=== PATIENT | female | born 1955 | race Hispanic/Latino ===

== ENCOUNTER 2018-06-03 07:53 | Day surgery (SDC) | payer BC ==
[2018-06-03] MEDS ORDERED: Propofol 10 mg/ml Inj (20 ML) ONE ×5 (09:38→11:21)
[2018-06-03] MEDS ORDERED: ePHEDrine 50 mg/ml Inj ONE (10:26)
[2018-06-03] MEDS ORDERED: Lidocaine 1% Inj (20ml) ONE (10:37)
[2018-06-03] MEDS ORDERED: Sodium Chloride 0.9% 1,000 ML IV SCH (12:00)
[2018-06-03 12:35] VITALS: BP 111/63; PULSE 74; RESP 16; TEMP 97.7; O2SAT 96
--- NOTE | 2018-06-03 13:48 | RAD ---
Date of service: 06/03/2018 HISTORY: post procedure COMPARISON: No prior. FINDINGS: BOWEL: An endoscope identified placed presumably through the rectum and terminating at the right upper quadrant abdomen. No prominent free intra peritoneal gas identified. Follow-up abdomen obstructive series can provided more sensitive evaluation of free intra peritoneal gas is clinically suspected. Gas seen distending the proximal large bowel segments as well as several small bowel loops which is felt to be procedure related. Phlebolith like calcifications are suspected in the pelvis soft tissues but not in the abdomen. BONES: Normal. OTHER FINDINGS: None. IMPRESSION: Lower endoscopy related findings including endoscope in the majority of the colon terminating at the right upper quadrant abdomen. No gross free intra peritoneal gas appreciable.
== END 2018-06-03 13:01 | disposition home or self-care (01) ==
LOC: ENDO 07:53
PROVIDERS: ATTEND Internal Medicine Gastroenterology
DX: D12.3 Benign neoplasm of transverse colon (principal); K57.30 Diverticulosis of large intestine without perforation or abscess without bleeding; K64.8 Other hemorrhoids; I10 Essential (primary) hypertension
CPT/HCPCS: 45381; 45385; 74018; 88305; J2704; J3010; J7030; J7040

== ENCOUNTER 2018-06-14 06:26 | Inpatient (IN) | payer BC ==
[2018-06-07 15:12] VITALS: BMI 21.2
[2018-06-14 07:17] LABS: BASO # 0.06 K/mm3 (0.0-2.0); BASO % 0.6 % (0.0-3.0); EOS # 0.2 (0.0-0.7); EOS % 2.1 % (1.5-5.0); GRAN # 6.61 (1.4-6.5); GRAN % 69.6 % (50.0-68.0); HEMOGLOBIN 14.2 g/dL (12.0-16.0); LYMPH # 1.8 (1.2-3.4); LYMPH % 18.8 % (22.0-35.0); MEAN CELL VOLUME 100.2 fl (80.0-105.0); MEAN CORPUSCULAR HEMOGLOBIN 34.3 pg (25.0-35.0); MEAN CORPUSCULAR HGB CONC 34.2 g/dl (31.0-37.0); MEAN PLATELET VOLUME 8.6 fl (7.0-11.0); MONO # 0.9 (0.1-0.6); MONO % 8.9 % (1.0-6.0); RBC 4.14 10^6/uL (3.5-6.1); RED CELL DISTRIBUTION WIDTH 12.9 % (11.5-14.5); WHITE BLOOD COUNT 9.5 10^3/ul (4.5-11.0)
[2018-06-14 07:33] LABS: BLOOD UREA NITROGEN 6 mg/dL (7-21); CALCIUM 9.9 mg/dL (8.4-10.5); GFR NON-AFRICAN AMERICAN > 60
[2018-06-14 07:34] LABS: INR 0.99; PARTIAL THROMBOPLASTIN TIME 32.9 Seconds (25.1-36.5); PROTHROMBIN TIME 11.4 SECONDS (9.4-12.5)
[2018-06-14] MEDS ORDERED: cefTRIAXone (Rocephin) 1 gm Inj ONE ×2 (07:48→08:29)
[2018-06-14] MEDS ORDERED: Absorbable Gelatin Sponge Size 100 ONE (07:48)
[2018-06-14] MEDS ORDERED: metroNIDAZOLE IV 500 mg/100 ml 500 MG/100 ML BAG ONE (07:48)
[2018-06-14] MEDS ORDERED: Propofol 10 mg/ml Inj (20 ML) ONE (07:56)
[2018-06-14] MEDS ORDERED: Midazolam 2 MG/2 ML VIAL ONE (07:56)
[2018-06-14] MEDS ORDERED: Lidocaine 1% Inj (20ml) ONE (07:57)
[2018-06-14] MEDS ORDERED: Rocuronium 10 mg/ml (5 ml) ONE ×3 (07:58→10:51)
[2018-06-14] MEDS ORDERED: ePHEDrine 50 mg/ml Inj ONE (08:15)
[2018-06-14] MEDS: Bupivacaine 0.5% 50 ML IJ ONE ×2 (09:35→09:36)
--- NOTE | 2018-06-14 09:47 | RAD ---
Date of service: 06/14/2018 HISTORY: PRE OP SURGERY COMPARISON: No prior. FINDINGS: BOWEL: Normal. No obstruction. No free air. BONES: Normal. OTHER FINDINGS: None. IMPRESSION: No active disease.
[2018-06-14] MEDS ORDERED: Sevoflurane - Inhalation Anesthetic Liq (250 ml) ONE (11:15)
[2018-06-14] MEDS ORDERED: Neostigmine Methylsulfate 3mg/3ml Syringe IV ONE (11:54)
[2018-06-14] MEDS ORDERED: Glycopyrrolate 0.2 mg/ml (2ml vial) ONE (12:29)
[2018-06-14] MEDS ORDERED: HYDROmorphone 0.5 mg/0.5 ml ISec IVP PRN (12:54)
--- NOTE | 2018-06-14 12:56 | PCM.SURG1 ---
Surgeon's Initial Post Op Note - Surgeon's Notes Surgeon: Dr. Guan Care Associate: Dr. Chapman PGY3, [facility] Type of Anesthesia: General Endo Pre-Operative Diagnosis: multiple colonic and rectal polyps Operative Findings: see operative report Post-Operative Diagnosis: see operative report Operation Performed: laparoscopic hand assisted right extended hemicolectomy. Excision of transanal rectal polyp. mobilization of splenic flexure. mesenteric cyst removal. ileocolic anastomosis Specimen/Specimens Removed: right colon. rectal polyp. mesenteric cyst Estimated Blood Loss: EBL {In ML}: 20 Blood Products Given: N/A Drains Used: Kamran Post-Op Condition: Good Date of Surgery/Procedure: 06/14/18 Time of Surgery/Procedure: 08:00
[2018-06-14] MEDS ORDERED: Lactated Ringer's 1,000 ML IV SCH (13:00)
[2018-06-14] MEDS ORDERED: cefOXitin Sodium 1 GM in Sodium Chloride 0.9% 100 ML IV SCH (13:15)
[2018-06-14] MEDS ORDERED: HYDROmorphone 0.5 mg/0.5 ml ISec ONE (13:54)
[2018-06-14] MEDS ORDERED: HYDROmorphone 0.5 mg/0.5 ml ISec IVP ONE ×4 (13:55→14:42)
[2018-06-14] MEDS ORDERED: metroNIDAZOLE IV 500 mg/100 ml 500 MG/100 ML BAG IVPB SCH (14:00)
[2018-06-14] MEDS ORDERED: HYDROmorphone 1 mg/ml ISec ONE ×3 (14:11→14:43)
[2018-06-14] MEDS: Lactated Ringer's 1,000 ML IV SCH (16:02)
[2018-06-14] MEDS: metroNIDAZOLE IV 500 mg/100 ml 500 MG/100 ML BAG IVPB SCH (17:09)
[2018-06-14] MEDS ORDERED: Sodium Chloride 0.9% 500 ML IV STA (17:50)
[2018-06-14] MEDS: HYDROmorphone 0.2 mg/ml (30ml) 30 ML IV PRN (18:07)
[2018-06-14] MEDS: cefOXitin Sodium 1 GM in Sodium Chloride 0.9% 100 ML IV SCH (19:39)
[2018-06-14 20:20] LABS: MEAN CELL VOLUME 100.6 fl (80.0-105.0); MEAN CORPUSCULAR HEMOGLOBIN 34.4 pg (25.0-35.0); MEAN CORPUSCULAR HGB CONC 34.2 g/dl (31.0-37.0); MEAN PLATELET VOLUME 8.7 fl (7.0-11.0); RBC 3.31 10^6/uL (3.5-6.1); RED CELL DISTRIBUTION WIDTH 12.8 % (11.5-14.5); WHITE BLOOD COUNT 14.4 10^3/ul (4.5-11.0)
[2018-06-14 20:21] LABS: HEMOGLOBIN 11.4 g/dL (12.0-16.0)
[2018-06-14 20:33] LABS: BLOOD UREA NITROGEN 6 mg/dL (7-21); CALCIUM 8.1 mg/dL (8.4-10.5); GFR NON-AFRICAN AMERICAN > 60
[2018-06-15] MEDS: cefOXitin Sodium 1 GM in Sodium Chloride 0.9% 100 ML IV SCH (00:59)
[2018-06-15] MEDS: metroNIDAZOLE IV 500 mg/100 ml 500 MG/100 ML BAG IVPB SCH (01:19)
[2018-06-15] MEDS: Lactated Ringer's 1,000 ML IV SCH (03:52)
--- NOTE | 2018-06-15 07:22 | OP ---
PROCEDURE DATE: 06/14/2018 PREOPERATIVE DIAGNOSIS: Multiple sessile polyps in the right colon, transverse colon, and rectum. POSTOPERATIVE DIAGNOSIS: Multiple sessile polyps in the right colon, transverse colon, and rectum. PROCEDURES PERFORMED: 1. Laparoscopic hand-assisted extended right hemicolectomy. 2. Transanal excision of the rectal polyps. 3. Splenic flexure mobilization. SURGEON: Paul Guan MD COMMISSION ASSOCIATE: Dr. Chapman. ANESTHESIOLOGIST: Dr. Gray. ANESTHESIA: General endotracheal anesthesia. ESTIMATED BLOOD LOSS: Minimal. SPECIMEN: 1. Right and transverse colon. 2. Rectal polyps. INDICATIONS: The patient is a 63-year-old female with history of ulcerated lesion in the cecum as well as adjacent sessile polyp. Patient also was found to have a proximal transverse colon polyp and what was thought to be a mid to distal transverse colon sessile polyp. These were not amenable to endoscopic mucosal resection, and therefore a decision was made to proceed with surgical incision. Patient also was noted to have a rectal polyp just past the dentate line, which was also not amenable to endoscopic resection. Patient was scheduled to proceed with the excision of all these lesions. DESCRIPTION OF PROCEDURE: Patient was brought to the operating room, placed on the operating table in supine position. The patient was connected to EKG, blood pressure and pulse oximetry monitors. The patient then underwent general endotracheal anesthesia and was prepped and draped in the usual sterile fashion in the lithotomy position. A Gilliam catheter was placed. First, a rigid sigmoidoscopy was done up to 25 cm. There was a pedunculated polyp noted at 12 o'clock position about 20 cm from the anus. There was another smaller polyp and adjacent polyp to it, at about 15 cm, located on 6 o'clock position. The distal rectal polyp just above the dentate line was noted in 1 o'clock position. At this point, the polyp as well as the adjacent mucosa were grabbed with Nazario clamp and lifted up. A 2-0 chromic stitch was placed at the base of that mucosa and ligated there. The mucosa adjacent to the polyps was then excised using electrocautery and the specimen was sent for pathology. The mucosal defect was now sutured together using the 2-0 chromic stitch in a running locking fashion. Once the mucosal defect was completely closed, the wound was irrigated and a sterile dressing was applied to the rectal area. Now the patient was re-draped and our attention was turned to the abdominal cavity. First, a small incision was made inferior to the umbilicus and Veress needle was inserted into the abdominal cavity after the wall of the abdomen was elevated with two towel clamps. Once pneumoperitoneum was obtained, a 12-mm trocar was inserted through that incision just below the umbilicus. Careful evaluation of abdominal cavities revealed the presence of normal-looking liver and spleen. The visible portion of the stomach also appeared to be normal. The ascending colon appeared to be quite redundant as well as the descending and sigmoid colon. The close inspection of the transverse colon revealed the presence of Fany ink markings at the hepatic flexure and another set of markings at about 10 cm distal to it in the mid transverse colon. At this point, I proceeded with placing two 5-mm trocars lateral to the rectus muscle on the left side, one in left upper quadrant and one in the left lower quadrant. Using bowel grasper and Harmonic scalpel, we proceeded with carefully elevating the ileocecal area and stretching it out, and this way exposing the ileocolic artery. The base of this artery was carefully identified and scoring of the peritoneum took place. Once the peritoneum around the artery was carefully cleared with adjacent fat and the vein was from the artery, we then proceeded with clipping the artery distally and proximally, and transected using Harmonic scalpel. The vein was also divided in the similar fashion. Now the mesentery of the ascending colon was carefully elevated from the underlying path and retroperitoneum. Once this was mobilized all the way up to the right pericolic gutter, I then proceeded to mobilizing the area of the proximal ascending colon, again all the way up to the lateral pericolic gutter. The duodenum was now exposed and the mesentery of the transverse colon and the proximal portion of it overlying the duodenum was also elevated and from the underlying tissue as well as the duodenum. Now my attention was turned to the transverse colon, attachments of the omentum, which was carefully incised above the colon and entry to the lesser sac was accomplished. The transverse colon was now released with the omentum transected above it, and the hepatocolic ligament was also released using Harmonic scalpel. The colon was now mobilized downwards and the transverse colic artery was exposed and noted. The lateral attachment of the colon and the paracolic gutter were taken down, and the colon was freed up on the right side. Those attachment were mobilized all the way up to the proximal portion of the terminal ileum. Once this was accomplished and the bowel was freely moving, I then proceed with further dissecting the area of the transverse colic artery and the right branch of that artery was carefully exposed and transected using Harmonic scalpel. Once this was accomplished, we then proceeded with mobilization of the splenic flexure in order to bring the remaining transverse colon towards the small bowel for anastomosis. Once that was accomplished, again by mobilization of the lateral paracolic gutter of the descending colon and detaching the splenocolic ligament using Harmonic scalpel . Once this portion of the colon was mobilized, I then again evaluated the area, noted that there was excellent hemostasis and proceed with making small incision for extraction of the specimen in the midline of the abdominal cavity. In order to accomplish that, the incision for the infraumbilical trocar was expanded above the umbilicus for about 6 to 7 cm. Using a Vicente retractor, carefully the abdominal cavity was evaluated through this incision. It was copiously irrigated. All the irrigant fluid was suctioned out. There was excellent hemostasis noted. Prior to opening the abdominal cavity, the area of detachment, the area of the splenocolic ligament, it was carefully evaluated and some Surgicel gauze was placed in that area to control bleeding. This was evaluated prior to the opening and there was good hemostasis noted there. Now the right colon, cecum, with the appendix and proximal area were brought out through the incision. The transverse colon was further mobilized directly with suture ligating some of the mesentery of that colon towards the left branch of the transverse colic artery. Once this was sufficiently mobilized, we then proceed with creating redundant [id number]-[id number] anastomosis using the CHINYERE stapler, by first transecting the transverse colon about 10 cm distal to the mid transverse colic region marked with Fany ink, and then transecting the terminal area at about 10 cm proximal to the ileocolic junction. The anastomosis created using CHINYERE and TA staplers. The crotch of the anastomosis was reinforced with a 3-0 silk stitch. A Kamran drain was inserted in the right lower quadrant and extended from the liver down to the pelvis. The stitch was used to secure the drain in place. Again, the abdominal cavity was carefully evaluated under direct vision and there was no bleeding noted anywhere. There was excellent hemostasis. I then proceed with closure of the abdominal wound using #1 PDS in a running fashion. Once the fascia was closed, the wound was copiously irrigated and closed in layers using 3-0 Vicryl for the deep dermal layers and 4-0 Monocryl for skin. A sterile Dermabond dressing was applied to the wound. All the trocar wounds are closed using 4-0 Monocryl and Dermabond dressing was applied to them. A sterile dressing was applied on the drain exit site. The drain was connected to the suction bulb. The patient was then awakened and extubated and transferred to recovery room for further observation. Paul Guan MD
[2018-06-15] MEDS: Enoxaparin 40 mg Syringe SC SCH ×2 (08:29→17:23)
[2018-06-15] MEDS: HYDROmorphone 0.2 mg/ml (30ml) 30 ML IV PRN (09:17)
--- NOTE | 2018-06-15 13:09 | CP.PCM.PN ---
Subjective - Date & Time of Evaluation Date of Evaluation: 06/15/18 Time of Evaluation: 07:00 - Subjective Subjective: Patient seen and examined this morning. No acute events over night. 1180cc/24hr from UOP. 75cc serosanguinous output from adamaris drain. Tolerated ice chips. No complaints. Objective - Vital Signs/Intake and Output Vital Signs (last 24 hours): Temp Pulse Resp BP Pulse Ox 97.6 F 63 20 95/59 L 94 L 06/15/18 09:43 06/15/18 09:43 06/15/18 09:43 06/15/18 09:43 06/15/18 06:00 Intake and Output: 06/15/18 06/15/18 06:59 18:59 Intake Total 940 30 Output Total 1235 Balance -295 30 - Medications Medications: Current Medications Enoxaparin Sodium (Lovenox) 40 mg SC DAILY [facility]; Protocol Last Admin: 06/15/18 08:29 Dose: 40 mg Lactated Ringer's (Lactated Ringer's) 1,000 mls @ 75 mls/hr IV .[id number] [facility] Last Admin: 06/15/18 03:52 Dose: Not Given Ondansetron HCl (Zofran Inj) 4 mg IVP Q6H PRN PRN Reason: Nausea/Vomiting Oxycodone/Acetaminophen (Percocet 5/325 Mg Tab) 1 tab PO Q4H PRN PRN Reason: Pain, moderate (4-7) Stop: 06/18/18 10:59 - Labs Labs: 06/14/18 19:50 06/14/18 19:50 PT 11.4 SECONDS (9.4-12.5) 06/14/18 07:00 INR 0.99 06/14/18 07:00 APTT 32.9 Seconds (25.1-36.5) 06/14/18 07:00 - Constitutional Appears: No Acute Distress - Head Exam Head Exam: NORMOCEPHALIC - Eye Exam Eye Exam: EOMI, Normal appearance - ENT Exam ENT Exam: Mucous Membranes Moist - Respiratory Exam Respiratory Exam: NORMAL BREATHING PATTERN - Cardiovascular Exam Cardiovascular Exam: +S1, +S2 - GI/Abdominal Exam GI & Abdominal Exam: Soft, Tenderness. absent: Distended, Firm, Guarding, Rigid Additional comments: incisional site tender, mild - Neurological Exam Neurological Exam: Alert, Awake, Oriented x3 - Psychiatric Exam Psychiatric exam: Normal Mood - Skin Skin Exam: Dry, Intact, Warm Assessment and Plan - Assessment and Plan (Free Text) Assessment: 63F s/p laparoscopic hand assisted right hemicolectomy and transanal rectal polypectomy POD1 Plan: -Begin clear liquid diet -D/C meade -Begint DVT ppx -Encourage incentive spirometer use -OOB to chair -Encourage ambulation -Monitor adamaris drain output -D/C MACHINE UMBRELLA TIPPER -PO analgesics -D/w Dr. Roge Ledezma PGY3
[2018-06-15] MEDS: Oxycodone/Acetaminophen 5/325 mg Tab PO PRN ×3 (14:07→22:18)
[2018-06-15 19:49] LABS: HEMOGLOBIN 10.8 g/dL (12.0-16.0); MEAN CELL VOLUME 100.3 fl (80.0-105.0); MEAN CORPUSCULAR HEMOGLOBIN 34.4 pg (25.0-35.0); MEAN CORPUSCULAR HGB CONC 34.3 g/dl (31.0-37.0); MEAN PLATELET VOLUME 8.9 fl (7.0-11.0); RBC 3.14 10^6/uL (3.5-6.1); RED CELL DISTRIBUTION WIDTH 13.2 % (11.5-14.5); WHITE BLOOD COUNT 11.2 10^3/ul (4.5-11.0)
[2018-06-15 20:00] LABS: BLOOD UREA NITROGEN 5 mg/dL (7-21); CALCIUM 8.3 mg/dL (8.4-10.5); GFR NON-AFRICAN AMERICAN > 60
[2018-06-16] MEDS: Oxycodone/Acetaminophen 5/325 mg Tab PO PRN ×5 (01:48→21:11)
[2018-06-16] MEDS: Lactated Ringer's 1,000 ML IV SCH (06:42)
[2018-06-16 07:57] LABS: BASO # 0.02 K/mm3 (0.0-2.0); BASO % 0.2 % (0.0-3.0); EOS # 0.1 (0.0-0.7); EOS % 0.9 % (1.5-5.0); GRAN # 6.05 (1.4-6.5); GRAN % 69.5 % (50.0-68.0); HEMOGLOBIN 10.3 g/dL (12.0-16.0); LYMPH # 1.4 (1.2-3.4); LYMPH % 16.5 % (22.0-35.0); MEAN CELL VOLUME 99.3 fl (80.0-105.0); MEAN CORPUSCULAR HEMOGLOBIN 34.2 pg (25.0-35.0); MEAN CORPUSCULAR HGB CONC 34.4 g/dl (31.0-37.0); MEAN PLATELET VOLUME 8.4 fl (7.0-11.0); MONO # 1.1 (0.1-0.6); MONO % 12.9 % (1.0-6.0); RBC 3.01 10^6/uL (3.5-6.1); RED CELL DISTRIBUTION WIDTH 13.1 % (11.5-14.5); WHITE BLOOD COUNT 8.7 10^3/ul (4.5-11.0)
[2018-06-16 08:17] LABS: BLOOD UREA NITROGEN 3 mg/dL (7-21); CALCIUM 8.2 mg/dL (8.4-10.5); GFR NON-AFRICAN AMERICAN > 60
[2018-06-16] MEDS: Enoxaparin 40 mg Syringe SC SCH (13:27)
[2018-06-16] MEDS ORDERED: Potassium Chloride 20 mEq ER Tab PO STA (19:18)
[2018-06-17] MEDS: Oxycodone/Acetaminophen 5/325 mg Tab PO PRN ×3 (02:56→15:01)
[2018-06-17] MEDS: Lactated Ringer's 1,000 ML IV SCH (05:24)
[2018-06-17 07:57] LABS: BLOOD UREA NITROGEN 3 mg/dL (7-21); CALCIUM 8.8 mg/dL (8.4-10.5); GFR NON-AFRICAN AMERICAN > 60
[2018-06-17] MEDS: Enoxaparin 40 mg Syringe SC SCH (09:11)
[2018-06-17 15:43] VITALS: BP 145/77; PULSE 69; RESP 16; TEMP 98; O2SAT 93
== END 2018-06-17 18:12 | disposition home or self-care (01) | DRG 331 ==
LOC: SDAINP 06:26 → EDSTATUS 09:00 → 5RSO 15:36
PROVIDERS: ADMIT General Practice; ATTEND General Practice
PROC: 0DJD8ZZ Inspection of Lower Intestinal Tract, Via Natural or Artificial Opening Endoscopic (ICD-10-PCS; 2018-06-14)
PROC: 0DTF4ZZ Resection of Right Large Intestine, Percutaneous Endoscopic Approach (ICD-10-PCS; principal; 2018-06-14 07:30)
PROC: 0DBP7ZZ Excision of Rectum, Via Natural or Artificial Opening (ICD-10-PCS; 2018-06-14 07:30)
DX: D12.0 Benign neoplasm of cecum (principal); K62.1 Rectal polyp; K66.8 Other specified disorders of peritoneum; I10 Essential (primary) hypertension; E03.9 Hypothyroidism, unspecified

== ENCOUNTER 2018-10-18 10:47 | Day surgery (SDC) | payer BC ==
[2018-10-14 10:50] VITALS: BMI 20.1
[2018-10-18] MEDS ORDERED: Propofol 10 mg/ml Inj (20 ML) ONE ×2 (14:05→15:23)
[2018-10-18] MEDS ORDERED: Midazolam 2 MG/2 ML VIAL ONE (14:06)
[2018-10-18] MEDS ORDERED: Sodium Chloride 0.9% 1,000 ML IV SCH (16:45)
[2018-10-18 17:17] VITALS: BP 132/88; PULSE 64; RESP 21; TEMP 97.8; O2SAT 99
== END 2018-10-18 17:43 | disposition home or self-care (01) ==
LOC: ENDO 10:47
PROVIDERS: ATTEND Internal Medicine Gastroenterology
DX: Z12.11 Encounter for screening for malignant neoplasm of colon (principal); D12.5 Benign neoplasm of sigmoid colon; K62.1 Rectal polyp; K57.30 Diverticulosis of large intestine without perforation or abscess without bleeding; K64.1 Second degree hemorrhoids; Z80.0 Family history of malignant neoplasm of digestive organs
CPT/HCPCS: 45381; 45385; 88305; J2001; J2250; J2704; J7030; J7040

== ENCOUNTER 2019-01-18 07:10 | Day surgery (SDC) | payer BC ==
[2019-01-06 14:18] VITALS: BMI 20.9
[2019-01-18] MEDS ORDERED: Midazolam 2 MG/2 ML VIAL ONE (10:29)
[2019-01-18] MEDS ORDERED: Propofol 10 mg/ml Inj (20 ML) ONE (10:29)
[2019-01-18] MEDS ORDERED: Bupivacaine 0.5% 50 ML IJ ONE (10:37)
[2019-01-18] MEDS ORDERED: Lidocaine 1% Inj (20ml) ONE (11:34)
[2019-01-18] MEDS ORDERED: Collagen Hemostat Powder ONE (12:09)
[2019-01-18] MEDS ORDERED: ePHEDrine 50 mg/ml Inj ONE (12:22)
[2019-01-18] MEDS ORDERED: Lactated Ringer's 1,000 ML IV SCH (12:30)
--- NOTE | 2019-01-18 12:36 | PCM.SURG1 ---
Surgeon's Initial Post Op Note - Surgeon's Notes Surgeon: MD Roge Coagulator: Esperanza PGY3 Pre-Operative Diagnosis: Serrated rectal polyps Operative Findings: Serrated rectal polyps, internal/external hemorrhoids Post-Operative Diagnosis: Serrated rectal polyps, internal/external hemorrhoids Operation Performed: Rigid proctosigmoidoscopy. Transanal excision of serrated rectal polyps. Excision of internal/external hemorrhoid Specimen/Specimens Removed: Serrated rectal polyps (9oclock, proximal 2oclock, distal 2oclock). Internal/external hemmorhoid Estimated Blood Loss: EBL {In ML}: 20 Date of Surgery/Procedure: 01/18/19 Time of Surgery/Procedure: 11:00
[2019-01-18] MEDS: HYDROmorphone 0.5 mg/0.5 ml ISec IVP PRN ×3 (12:41→13:24)
[2019-01-18] MEDS ORDERED: HYDROmorphone 0.5 mg/0.5 ml ISec ONE ×3 (12:48→13:26)
[2019-01-18 14:10] VITALS: BP 99/51; PULSE 75; RESP 18; TEMP 98.1; O2SAT 95
--- NOTE | 2019-01-19 00:31 | OP ---
PROCEDURE DATE: 01/18/2019 PREOPERATIVE DIAGNOSIS: Serrated rectal polyps. POSTOPERATIVE DIAGNOSES: Serrated rectal polyps, internal and external hemorrhoids. OPERATION PERFORMED: 1. Rigid proctosigmoidoscopy. 2. Excision of serrated rectal polyps transanally. 3. Excision of internal and external hemorrhoids. SURGEON: Paul Guan MD ASSEMBLY DETAILER: Josue Mata DO, PGY-3 ANESTHESIOLOGIST: Dr. Norman. ANESTHESIA: LMA. ESTIMATED BLOOD LOSS: 20 mL. HISTORY OF PATIENT: This is a 63-year-old female with a history of serrated rectal and colonic polyp syndrome with a history of multiple polypectomies coming here today for transanal excision of serrated rectal polyps, which were not able to be removed endoscopically during colonoscopy. She states she has had this for many years. Currently, she denies any pain. She is here as a same day patient having the procedure. DESCRIPTION OF OPERATION: There was a time-out called, indicating the correct patient, correct diagnosis, and correct procedure. The patient was sedated and LMA was placed in the usual fashion. Upon LMA, the patient was placed in the lithotomy position. The perineal region including the anus and the vaginal region were prepped and draped in the usual sterile fashion using Betadine. A rigid proctoscope was placed through the anus and examination of the rectum ant sigmoid was performed in the usual fashion. It was noted that approximately 5 cm from the anal verge was serrated polyps. There were also internal and external hemorrhoids on examination. Multiple biopsies of the polyps were taken; one from the 9 o'clock region, another in the 2 o'clock region, and another which was more proximal in the 2 o'clock region also. These biopsies were taken without any complications. An external and internal hemorrhoid was also removed which was noted to be engorged. Lidocaine was placed around the anal verge for pain control; and Surgicel, Surgisnow and Avagard were arranged together in a sandwich shape and placed through the anus to control bleeding. Estimated blood loss was 20 mL. The patient was awakened from the anesthesia and extubated. The patient was taken to the postanesthesia care unit without any complications. Josue Mata DO Paul Guan MD [facility] # [id number] URI
== END 2019-01-18 18:26 | disposition home or self-care (01) ==
LOC: SDS 07:10
PROVIDERS: ATTEND General Practice
DX: K62.1 Rectal polyp (principal); K64.8 Other hemorrhoids; K64.4 Residual hemorrhoidal skin tags; Z86.010 Personal history of colon polyps; I10 Essential (primary) hypertension; I25.10 Atherosclerotic heart disease of native coronary artery without angina pectoris
CPT/HCPCS: 45171; 45300; 46255; 88305; J0690; J1170; J2001; J2250; J2405; J2704; J3010; J7120 ×2